=== PATIENT | female | born 1990 | race Caucasian/White ===

== ENCOUNTER 2018-08-11 23:45 | Observation (INO) | payer OTHER ==
[~2018-08-11] VITALS: Ht 165.1 cm; Wt 94.3 kg
== END 2018-08-12 03:00 | disposition home or self-care (01) ==
LOC: SPU 23:45
PROVIDERS: ADMIT Obstetrics & Gynecology; ATTEND Obstetrics & Gynecology
DX: O46.93 Antepartum hemorrhage, unspecified, third trimester (principal); Z3A.38 38 weeks gestation of pregnancy
CPT/HCPCS: 81002; G0378 ×2

== ENCOUNTER 2018-08-17 21:08 | Inpatient (IN) | payer OTHER ==
[~2018-08-17] VITALS: Ht 165.1 cm; Wt 90.7 kg
[2018-08-17] MEDS ORDERED: LR 1,000 ML IV ONE (23:06)
[2018-08-17] MEDS: LR 1,000 ML IV SCH (23:06)
[2018-08-17] MEDS ORDERED: OXYTOCIN/0.9 % SODIUM CHLORIDE 1,000 ML IV SCH (23:06)
[2018-08-17] MEDS ORDERED: NALBUPHINE HCL 10 MG/ML AMP IM PRN (23:15)
[2018-08-17] MEDS ORDERED: NALBUPHINE HCL 10 MG/ML AMP IVP PRN (23:15)
[2018-08-17] MEDS ORDERED: TERBUTALINE SULFATE 1 MG/ML VIAL SUBCUT ONE (23:15)
[2018-08-17 23:41] LABS: BASOPHILS # (AUTO) 0.1 K/uL (0.0-0.2); BASOPHILS % (AUTO) 0.7 % (0.0-2.0); EOSINOPHILS # (AUTO) 0.2 K/uL (0.0-0.4); EOSINOPHILS % (AUTO) 1.9 % (0.0-4.0); HEMATOCRIT 34.2 % (36-48); HEMOGLOBIN 11.4 g/dL (12.0-16.0); LYMPHOCYTES # (AUTO) 2.6 K/uL (1.0-5.5); MEAN CORPUSCULAR HEMOGLOBIN 29 pg (27-31); MEAN CORPUSCULAR HGB CONC 33 % (32-36); MEAN CORPUSCULAR VOLUME 86 fL (79.0-98.0); MONOCYTES % (AUTO) 10.7 % (1.7-9.3); NEUTROPHILS # (AUTO) 5.8 K/uL (1.8-7.7); NEUTROPHILS % (AUTO) 59.7 % (40.0-70.0); PLATELET COUNT (AUTO) 112 K/uL (130-430); RED CELL DISTRIBUTION WIDTH 14.5 % (9.0-15.0); WHITE BLOOD COUNT (AUTO) 9.8 K/uL (4.8-10.8)
[2018-08-18] MEDS ORDERED: ROPIVACAINE 0.2% 100 ML ONE (07:52)
[2018-08-18] MEDS ORDERED: fentaNYL CITRATE/PF 100 MCG/2 ML AMP ONE (07:52)
[2018-08-18] MEDS: LR 1,000 ML IV SCH (09:23)
[2018-08-18] MEDS ORDERED: LR 500 ML IV ONE (10:16)
[2018-08-18] MEDS ORDERED: FENT2mCg/mL-ROPIVA0.2%/NS EPID 100 ML EP SCH (10:30)
[2018-08-18] MEDS ORDERED: ePHEDrine sulfate 50 MG/ML VIAL IVP PRN (10:30)
[2018-08-18] MEDS ORDERED: fentaNYL CITRATE/PF 100 MCG/2 ML AMP EP ONE (10:30)
[2018-08-18 11:51] VITALS: BP_SYST 123
[2018-08-18] MEDS ORDERED: OXYTOCIN 10 UNIT/ML VIAL ONE (14:05)
[2018-08-18] MEDS ORDERED: OXYCODONE/ACETAMINOPHEN 5-325 TABLET PO PRN (14:30)
[2018-08-18] MEDS ORDERED: HYDROcodone/ACETAMIN 5-325 MG TAB (NORCO/ VICODIN) PO PRN (14:30)
[2018-08-18] MEDS ORDERED: IBUPROFEN 600 MG TABLET ONE (18:19)
[2018-08-19] MEDS: IBUPROFEN 600 MG TABLET PO SCH ×5 (00:32→23:30)
[2018-08-19 06:33] LABS: HEMATOCRIT 32.1 % (36-48); HEMOGLOBIN 10.7 g/dL (12.0-16.0)
[2018-08-19] MEDS ORDERED: ROPIVACAINE 40 MG/20 ML AMP EP ONE (06:59)
[2018-08-20] MEDS: IBUPROFEN 600 MG TABLET PO SCH (06:10)
== END 2018-08-20 11:15 | disposition home or self-care (01) | DRG 560 ==
LOC: OBSVTOIN 21:08 → SPU 21:08
PROVIDERS: ADMIT Obstetrics & Gynecology; ATTEND Obstetrics & Gynecology
PROC: 10E0XZZ Delivery of Products of Conception, External Approach (ICD-10-PCS; principal; 2018-08-18)
PROC: 3E0S3BZ Introduction of Anesthetic Agent into Epidural Space, Percutaneous Approach (ICD-10-PCS; 2018-08-18)
DX: O99.214 Obesity complicating childbirth (principal); E66.9 Obesity, unspecified; Z37.0 Single live birth; Z3A.39 39 weeks gestation of pregnancy
CPT/HCPCS: 36415; 85018-TC; 85025; 86592; 86886; 86900; 86901; J2590; J2795; J3010